=== PATIENT | male | born 1955 | race Caucasian/White ===

== ENCOUNTER → 2022-07-26 10:46 | Outpatient (BNVA) | payer MEDICARE, BC, SELFPAY | PROVIDERS: Visit Provider Podiatrist Foot & Ankle Surgery | DX: M25.571 Pain in right ankle and joints of right foot (principal); M25.572 Pain in left ankle and joints of left foot; M20.41 Other hammer toe(s) (acquired), right foot; M20.42 Other hammer toe(s) (acquired), left foot; L90.9 Atrophic disorder of skin, unspecified; Q82.8 Other specified congenital malformations of skin | CPT/HCPCS: 73610; 73630; 99203 ==

== ENCOUNTER → 2022-09-13 10:02 | Outpatient (BNVA) | payer MEDICARE, BC, SELFPAY | PROVIDERS: Visit Provider Podiatrist Foot & Ankle Surgery | DX: M20.41 Other hammer toe(s) (acquired), right foot (principal); M20.42 Other hammer toe(s) (acquired), left foot; L90.9 Atrophic disorder of skin, unspecified; M79.671 Pain in right foot; M79.672 Pain in left foot; Q82.8 Other specified congenital malformations of skin | CPT/HCPCS: 11056; 99212 ==

== ENCOUNTER → 2022-10-08 08:02 | Outpatient (BNVA) | payer MEDICARE, BC, SELFPAY | PROVIDERS: Referring Provider Family Medicine; Visit Provider Nurse Practitioner Family | DX: L25.9 Unspecified contact dermatitis, unspecified cause (principal); L71.8 Other rosacea; L57.8 Other skin changes due to chronic exposure to nonionizing radiation | CPT/HCPCS: 99204 ==

== ENCOUNTER 2023-01-17 10:36 | Outpatient (CLI) | payer MEDICARE, BC, SELFPAY ==
--- NOTE | 2023-01-17 11:05 | CT_ITS ---
WS: [id number] CT ABDOMEN AND PELVIS NONCONTRAST HISTORY: BLOOD IN URINE TECHNIQUE: Imaging performed through the abdomen and pelvis. Coronal and sagittal reformats are submi tted. All CT scans at [facility] use at least one of these dose optimization techniques: auto mated exposure control; mA and/or kV adjustment per patient size (includes targeted exams where dose is matched to clinical indication); or iterative reconstruction. DLP: 462.27 COMPARISON: None available. Lower thorax: Heterogeneous airspace disease RIGHT lower lobe. Airspace disease abuts the fissure. He art is normal size. Small hiatal hernia. Liver: Normal size liver. No mass or bile duct dilatation. Gallbladder: Contracted. No adjacent inflammation. Pancreas: Mild diffuse atrophy. Spleen: Normal. Adrenal glands: Normal. No mass. Right kidney: Anteriorly rotated. Nonobstructing calcification centrally. There is an extrarenal pelv is. The proximal ureter is not visualized due to the rotation. No distal ureteral dilatation. Left kidney: Nonobstructing 3 mm calcification upper pole. Aorta: Mild atherosclerosis abdominal aorta with no aneurysm. No free fluid, intraperitoneal air or significant lymphadenopathy. GI tract: Stomach is moderately distended with food products. No small bowel obstruction. The appendi x has been removed. Normal colon with a few scattered diverticula. Abdominal wall: Asymmetric atrophy of the RIGHT abdominal wall musculature. No hernia. Pelvis: Urinary bladder is well distended. Prostate gland is enlarged encroaching into the bladder. T he soft tissue encroaching into the bladder is contiguous with the prostate. Osseous structures: No destructive bone lesions. Degenerative sclerotic changes at the symphysis pubi s. Benign appearing mixed lytic and sclerotic regions lesions in the ischii. IMPRESSION: 1. No renal obstruction. 2. Bilateral nonobstructing renal calculi. 3. Enlarged prostate gland encroaching into the urinary bladder. 4. Irregular consolidation in the RIGHT lower lobe most likely pneumonia. Recommend short-term follo w-up after treatment with antibiotics. Recommend follow-up chest CT in 2 to 3 weeks to ensure resolut ion. 5. Prior appendectomy.
== END 2023-01-17 10:37 | disposition home or self-care (01) ==
LOC: RAD 10:43
PROVIDERS: PCP Family Medicine; Visit Provider Family Medicine
DX: R31.9 Hematuria, unspecified (principal); N20.0 Calculus of kidney; N40.1 Benign prostatic hyperplasia with lower urinary tract symptoms; R91.8 Other nonspecific abnormal finding of lung field; Z90.89 Acquired absence of other organs
CPT/HCPCS: 74176

== ENCOUNTER 2024-01-22 12:05 | Emergency (ER) | payer MEDICARE, OTHER, SELFPAY ==
[2024-01-22 12:32] VITALS: BP 186/92; PULSE 82; RESP 18; TEMP 36.8; O2SAT 97; BMI 26.4
[2024-01-22 13:54] LABS: Basophils % 0.3 %; Eosinophils # 0.1 10^3/uL (0.0-0.8); Eosinophils % 1.3 %; Hematocrit 40.1 % (37-53); Lymphocytes # 1.7 10^3/uL (0.8-4.8); Lymphocytes % 23.4 %; Mean Corpuscular HGB Conc 33.9 g/dL (30-55); Mean Corpuscular Hemoglobin 29.6 pg (27-33); Mean Corpuscular Volume 87.4 fl (82-101); Mean Platelet Volume 10.9 fL (7.4-10.4); Monocytes # 0.6 10^3/uL (0.2-0.9); Monocytes % 8.2 %; Neutrophils # 4.72 10^3/uL (1.8-7.7); Neutrophils % 66.5 %; Nucleated Red Blood Cells % 0 %; Platelet Count 178 10^3/cmm (157-399); Red Blood Count 4.59 10^6/uL (3.85-5.65); Red Cell Distribution Width 12.5 % (12.1-15.1); White Blood Count 7.09 10^3/uL (3.29-11.43)
[2024-01-22 14:20] LABS: Alanine Aminotransferase 22 U/L (0-41); Alkaline Phosphatase 72 U/L (40-130); Anion Gap 14.7 (5-19); Aspartate Amino Transferase 23 U/L (0-40); Blood Urea Nitrogen 14 mg/dL (8-23); Calcium 8.9 mg/dL (8.5-10.5); Carbon Dioxide 27 mmol/L (22-29); Chloride 101 mmol/L (98-107); Creatinine Clr Calc Pharmacy 79.6643; Globulin 3.1 g/dL (1.3-4.6); Glomerular Filtration Rate 73.9 mL/min (90-130); Glucose 105 mg/dL (65-115); Lipase 39 U/L (13-60); Osmolality Calculated 289 mOsm/kg (285-295); Potassium 3.7 mmol/L (3.5-5.1); Sodium 139 mmol/L (136-145); Total Bilirubin 0.5 mg/dL (0.15-1.2); Total Protein 7.1 g/dL (6.6-8.7)
--- NOTE | 2024-01-22 14:53 | CTR_ITS ---
PROCEDURE INFORMATION: Exam: CT Abdomen And Pelvis Without Contrast Exam date and time: 01/22/2024 3:46 PM Age: 68 years old Clinical indication: Abdominal pain; Additional info: Abd pain TECHNIQUE: Imaging protocol: Computed tomography of the abdomen and pelvis without contrast. Radiation optimization: All CT scans at this facility use at least one of these dose optimization techniques: automated exposure control; mA and/or kV adjustment per patient size (includes targeted exams where dose is matched to clinical indication); or iterative reconstruction. COMPARISON: CT kidney stone [id number] 01/17/2023 11:11 AM RADIATION DOSE METRICS: Total DLP (mGy-cm): 736 FINDINGS: Lungs: Improved aeration in the right lower lobe compared with prior. Mild bibasilar atelectasis. Liver: Normal. No mass. Gallbladder and biliary ducts: Normal. No calcified stones. No ductal dilation. Pancreas: Normal. No ductal dilation. Spleen: Spleen remains enlarged. Adrenal glands: Normal. No mass. Kidneys and ureters: The right kidney remains anteriorly rotated. Again seen are several nonobstructing right renal calculi measuring up to 4 mm. 2 mm nonobstructing calculus in the left mid kidney with a punctate nonobstructing calculus in a lower pole calyx. Extrarenal pelvis again noted on the right. Mild right hydronephrosis. There is also mild right perinephric fat stranding which extends along the proximal aspect of the right ureter. No definite calculus is visualized within the right ureter. No left hydronephrosis. Stomach and bowel: Colonic diverticulosis without evidence of acute diverticulitis. Appendix: No evidence of appendicitis. Intraperitoneal space: Unremarkable. No free air. No significant fluid collection. Vasculature: Mild scattered aortoiliac calcifications. Lymph nodes: Unremarkable. No enlarged lymph nodes. Urinary bladder: Unremarkable as visualized. Reproductive: Ongoing prostatomegaly. Bones/joints: Degenerative changes of the visualized spine. No acute fracture. Soft tissues: Unremarkable. CT/CT kidney stone [id number] IMPRESSION: 1. Right renal calculi measuring up to 4 mm. Mild right hydronephrosis as well as perinephric and proximal periureteral fat stranding. No definite calculus visualized within the right ureter. There may be a non-radiopaque obstructing stone in the proximal to mid right ureter or possibly a recently passed calculus which is no longer visualized. Associated fat stranding may be infectious or inflammatory in nature. Recommend correlation with urinalysis to exclude infection. 2. Punctate nonobstructing left renal calculi. 3. Colonic diverticulosis. 4. Ongoing prostatomegaly. Recommend correlation with physical exam findings and PSA levels.
--- NOTE | 2024-01-22 14:56 | ED_ITS ---
HPI - Abdominal Pain 2 General: Chief Complaint: Abdominal Pain Stated Complaint: kidney infection sent from Dr. Bueno Time Seen by Provider: 01/22/24 14:53 Source: patient Mode of arrival: ambulatory Limitations: no limitations History of Present Illness: 68-year-old male states has been having some right-sided flank pain over the last few weeks. States it is worsened and he saw his PCP yesterday was diagnosed with a kidney infection and started Cipro states today he has pain and worsened he denies any fevers denies any vomiting or diarrhea he states pain is currently a 7 out of 10 denies any chest pain Associated Symptoms: Denies chills, diarrhea, fever(s), nausea and vomiting Related Data Previous Rx's Medication Instructions Recorded hydrocodone 5 mg-acetaminophen 325 1 tab PO Q6H PRN pain #14 tabs 01/22/24 mg tablet ondansetron 4 mg disintegrating 4 mg PO Q6H PRN nausea and 01/22/24 tablet vomiting #14 tabs Allergies Allergy/AdvReac Type Severity Reaction Status Date / Time No Known Allergies Allergy Verified 09/13/22 10:07 Review of Systems 2 Const: Denies: fever(s), chills, body aches or change in appetite ENMT: Denies: throat pain or dental pain Card: Denies: chest pain Resp: Denies: dyspnea GI: Reports: abdominal pain; Denies: nausea, vomiting or diarrhea : Reports: flank pain Musc: Denies: neck pain or back pain Skin/Breast: Denies: rash Neuro: Denies: headache(s) Physical Exam 2 Const: COMMON NORMALS: no acute distress, patient oriented x3 and healthy appearing HENMT: COMMON NORMALS: normocephalic and atraumatic HEAD & SCALP: n ormocephalic and atraumatic Eye: COMMON NORMALS: conjunctivae normal CONJUNCTIVA: Yes conjunctivae normal Neck/C-Spine: COMMON NORMALS: full ROM and supple Chest: COMMONS NORMALS: normal inspection of the chest Resp: COMMON NORMALS: normal respiratory effort Cardio: COMMON NORMALS: regular rate, regular rhythm and No murmurs present (Cardio) RATE: regular rate RHYTHM: regular rhythm GI: COMMON NORMALS: Normal to inspection, nondistended, normoactive bowel sounds present, Soft to palpation, non-tender and no masses PALPATION: Yes Soft to palpation : OTHER: Tenderness noted over right flank Extremity: COMMON NORMALS: normal to inspection and full ROM Neuro: COMMON NORMALS: patient oriented x3, moves all extremities and no focal motor deficits Psych: COMMON NORMALS: mental status grossly normal, Normal thought process present and cooperative THOUGHT PROCESS: Normal thought process present Skin: COMMON NORMALS: no rashes or lesions noted and no wounds GENERAL SKIN EXAM: no rashes or lesions noted Course 2 Vital Signs: Vital signs: Vital Signs Temperature 98.2 F 01/22/24 12:32 Pulse Rate 58 L 01/22/24 16:00 Respiratory Rate 16 01/22/24 16:00 Blood Pressure 186/96 01/22/24 16:00 Pulse Oximetry 99 01/22/24 16:00 Oxygen Delivery Me thod Room Air 01/22/24 16:00 MDM - Abdominal Pain Medical Decision Making Patient presents here with flank pain he was found to have kidney stone urinalysis here showed no signs of kidney infection he is to finish his course of antibiotics we will start him on pain medicine he is afebrile here has had no vomiting he already sees urologist has an appointment 2 weeks he is to follow-up as scheduled return if worsening. Medical Records I reviewed the patient's medical records. Lab Data I reviewed the patient's lab results. 01/22/24 13:39 01/22/24 13:39 Labs/Radiology: Radiology Impressions Abdomen/Pelvis CT 01/22/24 14:53 IMPRESSION: 1. Right renal calculi measuring up to 4 mm. Mild right hydronephrosis as well as perinephric and proximal periureteral fat stranding. No definite calculus visualized within the right ureter. There may be a non-radiopaque obstructing stone in the proximal to mid right ureter or possibly a recently passed calculus which is no longer visualized. Associated fat stranding may be infectious or inflammatory in nature. Recommend correlation with urinalysis to exclude infection. 2. Punctate nonobstructing left renal calculi. 3. Colonic diverticulosis. 4. Ongoing prostatomegaly. Recommend correlation with physical exam findings and PSA levels. Laboratory Results WBC 7.09 10^3/uL (3.29-11.43) 01/22/24 13:39 RBC 4.59 10^6/uL (3.85-5.65) 01/22/24 13:39 Hgb 13.60 g/dL (11.27-16.99) 01/22/24 13:39 Hct 40.1 % (37-53) 01/22/24 13:39 MCV 87.4 fl (82-101) 01/22/24 13:39 MCH 29.6 pg (27-33) 01/22/24 13:39 MCHC 33.9 g/dL (30-55) 01/22/24 13:39 RDW 12.5 % (12.1-15.1) 01/22/24 13:39 Plt Count 178 10^3/cmm (157-399) 01/22/24 13:39 MPV 10.9 fL (7.4-10.4) H 01/22/24 13:39 Neut % (Auto) 66.5 % 01/22/24 13:39 Lymph % (Auto) 23.4 % 01/22/24 13:39 [place] % (Auto) 8.2 % 01/22/24 13:39 Eos % (Auto) 1.3 % 01/22/24 13:39 Baso % (Auto) 0.3 % 01/22/24 13:39 Neut # (Auto) 4.72 10^3/uL (1.8-7.7) 01/22/24 13:39 Lymph # (Auto) 1.7 10^3/uL (0.8-4.8) 01/22/24 13:39 [place] # (Auto) 0.6 10^3/uL (0.2-0.9) 01/22/24 13:39 Eos # (Auto) 0.1 10^3/uL (0.0-0.8) 01/22/24 13:39 Baso # (Auto) 0.0 10^3/uL (0.0-0.1) 01/22/24 13:39 Nucleated RBC % (auto) 0 % 01/22/24 13:39 Nucleated RBCs # 0.0 /100WBC 01/22/24 13:39 Sodium 139 mmol/L (136-145) 01/22/24 13:39 Potassium 3.7 mmol/L (3.5-5.1) 01/22/24 13:39 Chloride 101 mmol/L (98-107) 01/22/24 13:39 Carbon Dioxide 27 mmol/L (22-29) 01/22/24 13:39 Anion Gap 14.7 (5-19) 01/22/24 13:39 BUN 14 mg/dL (8-23) 01/22/24 13:39 Creatinine 1.0 mg/dL (0.7-1.2) 01/22/24 13:39 GFR Calculation 73.9 mL/min (90-130) L 01/22/24 13:39 Glucose 105 mg/dL (65-115) 01/22/24 13:39 Calculated Osmolality 289 mOsm/kg (285-295) 01/22/24 13:39 Calcium 8.9 mg/dL (8.5-10.5) 01/22/24 13:39 Total Bilirubin 0.5 mg/dL (0.15-1.2) 01/22/24 13:39 AST 23 U/L (0-40) 01/22/24 13:39 ALT 22 U/L (0-41) 01/22/24 13:39 Alkaline Phosphatase 72 U/L (40-130) 01/22/24 13:39 Total Protein 7.1 g/dL (6.6-8.7) 01/22/24 13:39 Albumin 4.0 g/dL (3.5-5.2) 01/22/24 13:39 Globulin 3.1 g/dL (1.3-4.6) 01/22/24 13:39 Lipase 39 U/L (13-60) 01/22/24 13:39 Urine Color Yellow (Yellow) 01/22/24 15:14 Urine Appearance Clear (CLEAR) 01/22/24 15:14 Urine pH 5.5 (5-7) 01/22/24 15:14 Ur Specific [place] 1.009 (1.005-1.030) 01/22/24 15:14 Urine Protein Trace (Negative) A 01/22/24 15:14 Urine Glucose (UA) Negative (Normal) 01/22/24 15:14 Urine Ketones Negative (Negative) 01/22/24 15:14 Urine Blood Trace (Negative) A 01/22/24 15:14 Urine Nitrate Negative (Negative) 01/22/24 15:14 Urine Bilirubin Negative (Negative) 01/22/24 15:14 Urine Urobilinogen 0.2 mg/dL (Negative) 01/22/24 15:14 Ur Leukocyte Esterase Negative (Negative) 01/22/24 15:14 Urine RBC 0-2 /hpf (0-2) 01/22/24 15:14 Urine WBC 0-5 /hpf (0-5) 01/22/24 15:14 Ur Squamous Epith Cells 0-5 /hpf (0-5) 01/22/24 15:14 Amorphous Sediment Not Reportable 01/22/24 15:14 Urine Bacteria None seen /hpf (NONE) 01/22/24 15:14 Hyaline Casts 0-4 /lpf H 01/22/24 15:14 All radiology interpretation(s) finalized by discharge Discharge Plan Discharge Patient Disposition: Home Clinical Impression: Flank pain, Endometriosis, Kidney stone on right side Condition: Stable Prescriptions: New hydrocodone-acetaminophen 5-325 mg tablet 1 tab PO Q6H PRN (Reason: pain) Qty: 14 0RF ondansetron 4 mg tablet,disintegrating 4 mg PO Q6H PRN (Reason: nausea and vomiting) Qty: 14 0RF Discharge Orders: Discharge ED (Routine); Ordered 01/22/24 Ordered By: Aravind Betancourt Referrals: Feliciano Bueno MD [Primary Care Provider] - Discharge Diet: Advance as tolerated Discharge Activity: Resume usual activity Patient Instructions: Opioid Safety Coding Level of Care Code ED Doors Prefitter for Terrence Bates
[2024-01-22] MEDS: sodium chloride 0.9% 1,000 ML 999 ML IV (15:24)
[2024-01-22] MEDS: ondansetron 2 mg/ML SDV 2 mL 4 MG IVP (15:26)
[2024-01-22 15:29] VITALS: RESP 16
[2024-01-22] MEDS: morphine 4 mg/mL SDV 1 mL IVP (15:29)
[2024-01-22 15:30] VITALS: BP 165/105; PULSE 62; RESP 16; O2SAT 100
[2024-01-22 15:34] LABS: Bilirubin Urine Negative (Negative); Blood Urine Trace (Negative); Glucose Urine UA Negative (Normal); Ketones Urine Negative (Negative); Leukocyte Esterase Urine Negative (Negative); Nitrate Urine Negative (Negative); Protein Urine Trace (Negative); Specific Gravity, Urine 1.009 (1.005-1.030); Urine Appearance Clear (CLEAR); Urine Color Yellow (Yellow); Urobilinogen Urine 0.2 mg/dL (Negative); pH Urine 5.5 (5-7)
[2024-01-22 15:37] LABS: Add Urine Microscopic? YES; Bacteria Urine None Seen /hpf; Hyaline Casts Urine 0-4 /lpf; RBC Urine 0-2 /hpf (0-2); Squamous Epithelial Cell Urine 0-5 /hpf (0-5); WBC Urine 0-5 /hpf (0-5)
[2024-01-22 16:00] VITALS: BP 186/96; PULSE 58; RESP 16; O2SAT 99
[2024-01-22 17:46] VITALS: BP 184/95; PULSE 89; O2SAT 97
== END 2024-01-22 17:47 | disposition home or self-care (01) ==
PROVIDERS: Emergency Provider Emergency Medicine; PCP Family Medicine
DX: N13.2 Hydronephrosis with renal and ureteral calculous obstruction (principal)
CPT/HCPCS: 36415; 74176; 80053; 81001; 83690; 85025; 96361; 96374; 96375; 99285; J2270; J2405; J7030

== ENCOUNTER 2024-03-01 08:47 | Outpatient (CLI) | payer MEDICARE, SELFPAY ==
[2024-03-01 09:29] LABS: Basophils % 0.7 %; Eosinophils # 0.2 10^3/uL (0.0-0.8); Eosinophils % 3.4 %; Hematocrit 35.9 % (37-53); Lymphocytes # 1.2 10^3/uL (0.8-4.8); Lymphocytes % 18.9 %; Mean Corpuscular HGB Conc 34.3 g/dL (30-55); Mean Corpuscular Hemoglobin 28.8 pg (27-33); Mean Corpuscular Volume 84.1 fl (82-101); Monocytes # 0.4 10^3/uL (0.2-0.9); Neutrophils # 4.24 10^3/uL (1.8-7.7); Neutrophils % 69.5 %; Nucleated Red Blood Cells % 0 %; Platelet Count 185 10^3/cmm (157-399); Red Blood Count 4.27 10^6/uL (3.85-5.65)
[2024-03-01 09:47] LABS: Alanine Aminotransferase 22 U/L (0-41); Albumin Level 3.8 g/dL (3.5-5.2); Alkaline Phosphatase 81 U/L (40-130); Anion Gap 14.2 (5-19); Aspartate Amino Transferase 22 U/L (0-40); Blood Urea Nitrogen 14 mg/dL (8-23); C Reactive Protein 27.2 mg/L (0.0-4.9); Calcium 8.2 mg/dL (8.5-10.5); Carbon Dioxide 26 mmol/L (22-29); Chloride 99 mmol/L (98-107); Globulin 2.3 g/dL (1.3-4.6); Glomerular Filtration Rate 73.9 mL/min (90-130); Glucose 113 mg/dL (65-115); Osmolality Calculated 281 mOsm/kg (285-295); Potassium 4.2 mmol/L (3.5-5.1); Sodium 135 mmol/L (136-145); Total Bilirubin 0.5 mg/dL (0.15-1.2); Total Protein 6.1 g/dL (6.6-8.7)
[2024-03-01 09:48] LABS: Vancomycin Trough 10.4 ug/mL (10-15)
== END 2024-03-01 08:48 | disposition home or self-care (01) ==
LOC: LAB 08:50
PROVIDERS: PCP Family Medicine; Visit Provider Internal Medicine Infectious Disease
DX: N10 Acute pyelonephritis (principal)
CPT/HCPCS: 80053; 80202; 85025; 86140